=== PATIENT | male | born 1990 | race Two or more races ===

== ENCOUNTER 2017-04-28 21:55 | Emergency (ER) | payer MEDICAID, SELFPAY ==
[~2017-04-28] VITALS: Ht 172.7 cm; Wt 88.9 kg
[~2017-04-28 21:55] MED LIST: CIPROFLOXACIN500 M2 ORAL; NORCO 5-325 TA1 EACH ORAL
[2017-04-28 22:33] VITALS: BP 133/85
[2017-04-28] MEDS ORDERED: POLYTRIM OP SOL10 ML OPHTHALM (23:13)
--- NOTE | 2017-04-28 23:14 | Emergency Room Report ---
History of Present Illness General Chief Complaint: Eye Problems Source: Patient Present Illness HPI Is a 26-year-old male with no past medical history. He presents with red eyes redness and injection discharge. Onset one day. His girlfriend was here couple days ago for the same thing. Patient has a runny nose and congestion. Increased tearing. Increase blurry vision. No nausea no vomiting. No fever or chills . no trauma. Allergies: Coded Allergies: No Known Allergies (Unverified , 02/03/14) Patient History Past Medical History: see triage record, old chart reviewed Past Surgical History: none Pertinent Family History: none Social History: Denies: smoking Immunizations: other Reviewed Nursing Documentation: PMH: Agreed, PSxH: Agreed Nursing Documentation-PMH Hx Neurological Problems: Yes - Migraines, Menegitits as a child Review of Systems Eye: Reports: blurred vision, discharge, Denies: eye pain ENT: Denies: ear pain, nose congestion, throat swelling Respiratory: Denies: cough, shortness of breath Cardiovascular: Denies: chest pain, palpitations Gastrointestinal: Denies: abdominal pain, diarrhea, nausea, vomiting Musculoskeletal: Denies: back pain, joint pain Skin: Denies: rash Neurological: Denies: headache, numbness Endocrine: Denies: increased thirst, increased urine Hematologic/Lymphatic: Denies: easy bruising All Other Systems: negative except mentioned in HPI Physical Exam Vital Signs Date Time Temp Pulse Resp B/P Pulse Ox O2 Delivery O2 Flow Rate FiO2 04/28/17 22:30 98.4 80 16 133/85 98 Room Air vitals normal Sp02 EP Interpretation: reviewed, normal General Appearance: well appearing, no apparent distress, alert Head: normocephalic, atraumatic Eyes: left eye other - left conjunctiva with injection., bilateral eye EOMI, bilateral eye PERRL ENT: hearing grossly normal, normal pharynx Neck: full range of motion, supple, no meningismus Respiratory: chest non-tender, lungs clear, normal breath sounds Cardiovascular #1: regular rate, rhythm, no murmur Gastrointestinal: normal bowel sounds, non tender, no mass, no organomegaly, no bruit, non-distended Musculoskeletal: back normal, gait/station normal, normal range of motion Psychiatric: mood/affect normal Skin: warm/dry Medical Decision Making Diagnostic Impression: Primary Impression: Conjunctivitis Qualified Codes: H10.32 - Unspecified acute conjunctivitis, left eye ER Course Patient presents with a conjunctivitis. Most likely viral. We'll go ahead and treat for possible bacterial infection. No evidence of foreign body. No globe rupture. We'll discharge home. Last Vital Signs Date Time Temp Pulse Resp B/P Pulse Ox O2 Delivery O2 Flow Rate FiO2 04/28/17 22:30 98.4 80 16 133/85 98 Room Air Status: improved Disposition: HOME, SELF-CARE Condition: Stable Scripts Polymyxin/Trimethoprim (Polytrim Eye Drops) 10 Ml Drops 2 DROP OPHTHALM THREE TIMES A DAY, #1 EA Instill in affected eye for 7 days Prov: ATIF FIELD M.D. 04/28/17 Patient Instructions: Bacterial Conjunctivitis, [id number] Additional Instructions: Treat both eyes. Followup with your Dr. in 7 days. Return if worse. ATIF FIELD M.D. Apr 28, 2017 23:14
[2017-04-28 23:20] VITALS: BP 133/85
== END 2017-04-28 23:20 | disposition home or self-care (01) ==
LOC: EMR 22:09
DX: H10.9 Unspecified conjunctivitis (principal)
CPT/HCPCS: 99283

== ENCOUNTER 2018-01-15 15:33 | Emergency (ER) | payer MEDICAID ==
[~2018-01-15] VITALS: Ht 170.2 cm; Wt 86.2 kg
[~2018-01-15 15:33] MED LIST changes: +POLYTRIM OP SOL10 ML OPHTHALM
[2018-01-15] MEDS ORDERED: NKM (15:46)
[2018-01-15] MEDS ORDERED: Morphine Sulfate 2mg/ml Inj IVP ONE (16:00)
[2018-01-15 16:10] VITALS: BP 140/64
[2018-01-15 16:50] LABS: BASOPHILS % (AUTO) 0.9 % (0.0-2.0); EOSINOPHILS % (AUTO) 0.2 % (0.0-3.0); HEMATOCRIT 47.2 % (42.0-52.0); HEMOGLOBIN 16.5 G/DL (14.2-18.0); LYMPHOCYTES % (AUTO) 20.9 % (20.0-45.0); MEAN CORPUSCULAR VOLUME 85 FL (80-99); PLATELET COUNT 142 K/UL (150-450); RED BLOOD COUNT 5.53 M/UL (4.70-6.10); RED CELL DISTRIBUTION WIDTH 11.3 % (11.6-14.8); WHITE BLOOD COUNT 6.7 K/UL (4.8-10.8)
[2018-01-15 16:57] LABS: ANION GAP 11 mmol/L (5-15); BLOOD UREA NITROGEN 12 mg/dL (7-18); CALCIUM 9.2 MG/DL (8.5-10.1); CARBON DIOXIDE 28 MMOL/L (21-32); CHLORIDE 102 MMOL/L (98-107); CREATININE 0.8 MG/DL (0.55-1.30); POTASSIUM 3.4 MMOL/L (3.5-5.1); SODIUM 140 MMOL/L (136-145)
[2018-01-15 17:15] LABS: ALANINE AMINOTRANSFERASE 36 U/L (12-78); ALBUMIN 4.2 G/DL (3.4-5.0); ALKALINE PHOSPHATASE 80 U/L (46-116); ASPARTATE AMINO TRANSFERASE 22 U/L (15-37); BILIRUBIN,TOTAL 1.1 MG/DL (0.2-1.0)
[2018-01-15 17:21] LABS: BILIRUBIN,DIRECT 0.2 MG/DL (0.0-0.3)
[2018-01-15] MEDS ORDERED: Ketorolac 30mg Inj IV ONE (17:30)
[2018-01-15 17:38] VITALS: BP 132/82
--- NOTE | 2018-01-15 17:56 | Emergency Room Report ---
History of Present Illness General Chief Complaint: Nausea, Vomiting, and Diarrhea Source: Patient Present Illness HPI Patient presents with 2 days of vomiting and abdominal pain. The pain is cramping. His son is also ill. They state that his son had constipation. He also is having loose stools. The stools been brown. There are not any fevers or chills. He feels weak when he stands up and feels some dizziness. He denies dysuria. No URI sy. No chest pain. Not depressed. H/O kidney stones in past. This does not feel like that. H/O migraines. Not feel like that, but does have headache. 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 Nursing Documentation: PMH: Agreed; PSxH: Agreed Nursing Documentation-PM Past Medical History: No Stated History Hx Neurological Problems: Yes - Migraines, Menegitits as a child Review of Systems All Other Systems: negative except mentioned in HPI Physical Exam Vital Signs Date Time Temp Pulse Resp B/P (MAP) Pulse Ox O2 Delivery O2 Flow Rate FiO2 01/15/18 15:42 98.3 82 14 140/64 95 Room Air 98.2 Sp02 EP Interpretation: reviewed, normal General Appearance: well appearing, no apparent distress, GCS 15 Head: normocephalic Eyes: bilateral eye normal inspection, bilateral eye PERRL ENT: moist mucus membranes Neck: supple Respiratory: lungs clear, normal breath sounds Cardiovascular #1: regular rate, rhythm Cardiovascular #2: 2+ radial (R) Gastrointestinal: normal inspection, normal bowel sounds, no mass, non- distended, no guarding, no rebound, tenderness - epigastric Genitourinary: no CVA tenderness Musculoskeletal: back normal, gait/station normal, normal range of motion Neurologic: alert, oriented x3, grossly normal Psychiatric: mood/affect normal Skin: normal inspection, warm/dry Medical Decision Making Diagnostic Impression: Primary Impression: Viral gastroenteritis ER Course Patient presents with nausea vomiting abdominal pain and loose stools. He can' t identify any thing he ate however differential includes gastroenteritis, gastritis, pancreatitis, peptic ulcer disease and gallbladder disease. Based on his exam this is more consistent with gastroenteritis. Pain is upper and appendicitis unlikely. He'll be evaluated with labs. He will be treated with IV hydration, Pepcid, Zofran and a small dose of morphine. Labs with normal WBC and minimally low K. After initial treatment the patient still had a headache. Toradol was added. The headache is improved and the patient is able to tolerate regular diet at the moment. (Stomach bubbling after sandwich.) Patient stable for outpatient observation and treatment. Laboratory Tests Test 01/15/18 16:32 White Blood Count 6.7 K/UL (4.8-10.8) Red Blood Count 5.53 M/UL (4.70-6.10) Hemoglobin 16.5 G/DL (14.2-18.0) Hematocrit 47.2 % (42.0-52.0) Mean Corpuscular Volume 85 FL (80-99) Mean Corpuscular Hemoglobin 29.9 PG (27.0-31.0) Mean Corpuscular Hemoglobin Concent 35.1 G/DL (32.0-36.0) Red Cell Distribution Width 11.3 % (11.6-14.8) L Platelet Count 142 K/UL (150-450) L Mean Platelet Volume 13.8 FL (6.5-10.1) H Neutrophils (%) (Auto) 72.0 % (45.0-75.0) Lymphocytes (%) (Auto) 20.9 % (20.0-45.0) Monocytes (%) (Auto) 6.0 % (1.0-10.0) Eosinophils (%) (Auto) 0.2 % (0.0-3.0) Basophils (%) (Auto) 0.9 % (0.0-2.0) Sodium Level 140 MMOL/L (136-145) Potassium Level 3.4 MMOL/L (3.5-5.1) L Chloride Level 102 MMOL/L (98-107) Carbon Dioxide Level 28 MMOL/L (21-32) Anion Gap 11 mmol/L (5-15) Blood Urea Nitrogen 12 mg/dL (7-18) Creatinine 0.8 MG/DL (0.55-1.30) Estimate Glomerular Filtration Rate > 60 mL/min (>60) Glucose Level 92 MG/DL (74-106) Calcium Level 9.2 MG/DL (8.5-10.1) Total Bilirubin 1.1 MG/DL (0.2-1.0) H Direct Bilirubin 0.2 MG/DL (0.0-0.3) Aspartate Amino Transferase (AST) 22 U/L (15-37) Alanine Aminotransferase (ALT) 36 U/L (12-78) Alkaline Phosphatase 80 U/L (46-116) Total Protein 8.5 G/DL (6.4-8.2) H Albumin 4.2 G/DL (3.4-5.0) Globulin 4.3 g/dL Albumin/Globulin Ratio 1.0 (1.0-2.7) Lipase 201 U/L (73-393) Last Vital Signs Date Time Temp Pulse Resp B/P (MAP) Pulse Ox O2 Delivery O2 Flow Rate FiO2 01/15/18 18:08 98.1 16 132/82 96 Room Air 98.1 01/15/18 15:42 82 Status: improved Disposition: HOME, SELF-CARE Condition: Improved Scripts Ondansetron Odt* (ZOFRAN ODT*) 4 Mg Tab.rapdis 4 MG ORAL Q8H PRN for Nausea & Vomiting, #4 TAB 0 Refills Prov: Prince Chaves M.D. 01/15/18 Referrals: VANDANA CAROLINA,REFERRING (PCP) Prince Chaves M.D. Jan 15, 2018 17:56
[2018-01-15] MEDS ORDERED: ZOFRAN ODT4 MG ORAL (17:59)
[2018-01-15 18:08] VITALS: BP 132/82
== END 2018-01-15 18:12 | disposition home or self-care (01) ==
LOC: EMR 15:54
DX: A08.4 Viral intestinal infection, unspecified (principal)
CPT/HCPCS: 36415; 80053; 82248; 83690; 85025; 96374; 96375; 99284; J1885; J2270; J2405; S0028

== ENCOUNTER 2019-09-30 22:26 | Emergency (ER) | payer SELFPAY ==
[~2019-09-30] VITALS: Ht 170.2 cm; Wt 86.2 kg
[~2019-09-30 22:26] MED LIST changes: +NKM; +ZOFRAN ODT4 MG ORAL
[2019-09-30 22:41] VITALS: BP 142/89
--- NOTE | 2019-09-30 22:43 | Emergency Room Report ---
History of Present Illness General Chief Complaint: Chest Pain Source: Patient, Medical Record Present Illness HPI Patient presents with complaints of pain to the right upper chest area Reports that the pain started 3 to 4 days ago It has persisted and he was concerned and came to the ER Patient reports that he thought initially that it was secondary to his workout He is now also having some phlegm production with the cough pain is worse with touch or coughing Denies any shortness of breath denies any vomiting or diarrhea patient does have a history of smoking Pain is a sharp pain that also radiates towards the back towards the right upper scapular area Allergies: Coded Allergies: No Known Allergies (Unverified , 02/03/14) Patient History Past Medical History: see triage record Reviewed Nursing Documentation: PMH: Agreed; PSxH: Agreed Nursing Documentation-PMH Past Medical History: No History, Except For Hx Neurological Problems: Yes - Migraines, Menegitits as a child Review of Systems All Other Systems: negative except mentioned in HPI Physical Exam Vital Signs Date Time Temp Pulse Resp B/P (MAP) Pulse Ox O2 Delivery O2 Flow Rate FiO2 09/30/19 22:29 98.4 75 18 142/89 (106) 96 Room Air Sp02 EP Interpretation: reviewed, normal General Appearance: well appearing, no apparent distress Head: normocephalic, atraumatic Eyes: bilateral eye PERRL, bilateral eye EOMI ENT: hearing grossly normal, normal pharynx, TMs + canals normal, uvula midline Neck: full range of motion, supple, no meningismus, no bony tend Respiratory: lungs clear, normal breath sounds, no rhonchi, no respiratory distress, no retraction, no accessory muscle use Cardiovascular #1: normal peripheral pulses, regular rate, rhythm, no edema, no gallop, no JVD, no murmur Gastrointestinal: normal bowel sounds, non tender, soft, no mass, no organomegaly, non-distended, no guarding, no hernia, no pulsatile mass, no rebound Genitourinary: no CVA tenderness Musculoskeletal: tender - On palpation of the right upper pectoral region midclavicular Neurologic: motor strength/tone normal, oriented x3, sensory intact, responsive Psychiatric: mood/affect normal Skin: no rash Lymphatic: normal inspection, no adenopathy Medical Decision Making Diagnostic Impression: Primary Impression: Chest pain ER Course Patient is a fairly complex patient with multiple differential to consideration including but not limited to cardiac cardiopulmonary and vascular emergencies Patient has significant musculoskeletal component to his complaint EKG was done and was appropriate Chest x-ray does not show any acute process Patient resting comfortably and is stable for close outpatient follow-up EKG Diagnostic Results Rate: normal Rhythm: NSR ST Segments: no acute changes Rhythm Strip Diag. Results EP Interpretation: yes Rate: 60 Rhythm: NSR, no PVC's, no ectopy Chest X-Ray Diagnostic Results Chest X-Ray Diagnostic Results : Chest X-Ray Ordered: Yes # of Views/Limited/Complete: 1 View Indication: Chest Pain EP Interpretation: Yes Interpretation: no consolidation, no effusion, no pneumothorax Impression: No acute disease Electronically Signed by: Eric Arambula DO Last Vital Signs Date Time Temp Pulse Resp B/P (MAP) Pulse Ox O2 Delivery O2 Flow Rate FiO2 09/30/19 22:29 98.4 75 18 142/89 (106) 96 Room Air Status: improved Disposition: HOME, SELF-CARE Condition: Improved Additional Instructions: Patient is provided with the discharge instructions notified to follow up with primary doctor in the next 2-3 days otherwise return to the er with any worsening symptoms. Please note that this report is being documented using [employer] technology. This can lead to erroneous entry secondary to incorrect interpretation by the dictating instrument. Eric Arambula DO Sep 30, 2019 22:43
[2019-09-30 23:45] VITALS: BP 142/89
--- NOTE | 2019-10-01 11:41 | Diagnostic Imaging Report ---
Indication: Chest pain Technique: One view of the chest Comparison: none Findings: Lungs and pleural spaces are clear. Heart size is normal. Impression: No acute process
== END 2019-09-30 23:45 | disposition home or self-care (01) ==
LOC: EMR 22:55
DX: R07.9 Chest pain, unspecified (principal); Z86.61 Personal history of infections of the central nervous system
CPT/HCPCS: 71045; 93005; 99283

== ENCOUNTER 2020-05-25 17:33 | Emergency (ER) | payer OTHER ==
[~2020-05-25] VITALS: Ht 170.2 cm; Wt 86.2 kg
[2020-05-25 17:39] VITALS: BP 166/107
--- NOTE | 2020-05-25 17:39 | NUR ---
ED Nurse Note: Patient walked in to ED from home c/o left flank pain x2 hrs ago. Deneis nausea, vomiting, diarrhea. Pt has hx of history of kidney stones and reports hematuria x couple days ago. Pt AAOx4, verbally responsive. No SOB, on room air. Afebrile. Pt placed on monitoring tech. ERPA at bedside.
[2020-05-25] MEDS ORDERED: Ketorolac 30mg Inj IV ONE (17:45)
--- NOTE | 2020-05-25 17:51 | NUR ---
ED Nurse Note: IV line established. Blood specimen collected and sent to lab.
[2020-05-25] MEDS ORDERED: Morphine Sulfate 4mg/ml Inj (IV USE ONLY) IVP ONE (18:00)
--- NOTE | 2020-05-25 18:01 | Emergency Room Report ---
History of Present Illness General Chief Complaint: Abdominal Pain Source: Patient Present Illness HPI 30-year-old male presents to the emergency department complaining of 10 out of 10 severity left flank pain x1 day. Patient reports acute onset. He does report he has been having some hematuria for 2 to 3 days. He denies fevers or chills. Patient reports history of renal calculi in the past and states that today's presentation is very similar to what he experienced in the past. He denies nausea or vomiting. He denies constipation or diarrhea. He denies abdominal tenderness or back pain. He denies penile DC. He denies urinary frequency or urgency. Allergies: Coded Allergies: No Known Allergies (Unverified , 02/03/14) COVID-19 Screening Contact w/high risk pt: No Experienced COVID-19 symptoms?: No COVID-19 Testing performed CHORE TENDER: No Patient History Past Medical History: see triage record Past Surgical History: none Pertinent Family History: none Reviewed Nursing Documentation: PMH: Agreed; PSxH: Agreed Nursing Documentation-PMH Past Medical History: No History, Except For Hx Neurological Problems: Yes - Migraines, Menegitits as a child Review of Systems All Other Systems: negative except mentioned in HPI Physical Exam Vital Signs Date Time Temp Pulse Resp B/P (MAP) Pulse Ox O2 Delivery O2 Flow Rate FiO2 05/25/20 17:38 97.3 55 20 166/107 (126) 99 Room Air Sp02 EP Interpretation: reviewed, normal General Appearance: no apparent distress, alert, GCS 15, non-toxic Head: normocephalic, atraumatic Eyes: bilateral eye normal inspection, bilateral eye PERRL ENT: hearing grossly normal, normal voice Neck: full range of motion Respiratory: lungs clear, normal breath sounds, speaking full sentences Cardiovascular #1: regular rate, rhythm Gastrointestinal: normal bowel sounds, non tender, soft, non-distended, no guarding Rectal: deferred Genitourinary: normal inspection, CVA tenderness (L) Musculoskeletal: back normal, normal range of motion, gait/station normal, non- tender Neurologic: alert, motor strength/tone normal, oriented x3, sensory intact, responsive, speech normal Psychiatric: judgement/insight normal Lymphatic: no adenopathy Medical Decision Making PA Attestation Dr. Lebron is my supervising Physician whom patient management has been discussed with. Diagnostic Impression: Primary Impression: Kidney calculi Additional Impression: UTI (urinary tract infection) Qualified Codes: N30.01 - Acute cystitis with hematuria ER Course 30-year-old male presents to the emergency department complaining of 10 out of 10 severity left flank pain x1 day. Patient reports acute onset. He does report he has been having some hematuria for 2 to 3 days. He denies fevers or chills. Patient reports history of renal calculi in the past and states that today's presentation is very similar to what he experienced in the past. He denies nausea or vomiting. He denies constipation or diarrhea. He denies abdominal tenderness or back pain. He denies penile DC. He denies urinary frequency or urgency. Ddx considered but are not limited to Diverticulitis, acute appendicitis, diarrhea,UC, PUD, GE, pancreatitis, gallstone, kidney stone, pyelonephritis, UTI , obstruction. Vital signs: are WNL, pt. is afebrile. H&PE are most consistent with possible Left sided renal calculi. Patient does not have an acute abdomen on exam. ORDERS: -CBC: * elevated WBC's of 19.4 - CMP: normal cr and BUN - lipase: 421 - UA: --- Bacteria and inflammatory marker increase = UTI - CT abdomen and pelvis no contrast: Stone in the left ureter 6mm ED INTERVENTIONS: -- 1000NS IV bolus x 2 --6mg Morphine for pain -Toradol 30mg IV -1 Gm. Rocephin IV DISPOSITION: pt. signed out to attending physician Dr. Lebron. Labs Test 05/25/20 17:51 05/25/20 19:45 White Blood Count 19.4 K/UL (4.8-10.8) Red Blood Count 5.72 M/UL (4.70-6.10) Hemoglobin 16.7 G/DL (14.2-18.0) Hematocrit 49.7 % (42.0-52.0) Mean Corpuscular Volume 87 FL (80-99) Mean Corpuscular Hemoglobin 29.2 PG (27.0-31.0) Mean Corpuscular Hemoglobin Concent 33.6 G/DL (32.0-36.0) Red Cell Distribution Width 11.8 % (11.6-14.8) Platelet Count 162 K/UL (150-450) Mean Platelet Volume 14.5 FL (6.5-10.1) Neutrophils (%) (Auto) % (45.0-75.0) Lymphocytes (%) (Auto) % (20.0-45.0) Monocytes (%) (Auto) % (1.0-10.0) Eosinophils (%) (Auto) % (0.0-3.0) Basophils (%) (Auto) % (0.0-2.0) Differential Total Cells Counted 100 Neutrophils % (Manual) 79 % (45-75) Lymphocytes % (Manual) 15 % (20-45) Monocytes % (Manual) 2 % (1-10) Eosinophils % (Manual) 0 % (0-3) Basophils % (Manual) 0 % (0-2) Band Neutrophils 4 % (0-8) Platelet Estimate Adequate Platelet Morphology Normal Red Blood Cell Morphology Normal Sodium Level 139 MMOL/L (136-145) Potassium Level 3.8 MMOL/L (3.5-5.1) Chloride Level 102 MMOL/L (98-107) Carbon Dioxide Level 25 MMOL/L (21-32) Anion Gap 12 mmol/L (5-15) Blood Urea Nitrogen 12 mg/dL (7-18) Creatinine 1.1 MG/DL (0.55-1.30) Estimat Glomerular Filtration Rate > 60 mL/min (>60) Glucose Level 124 MG/DL (74-106) Calcium Level 9.3 MG/DL (8.5-10.1) Total Bilirubin 0.5 MG/DL (0.2-1.0) Aspartate Amino Transf (AST/SGOT) 19 U/L (15-37) Alanine Aminotransferase (ALT/SGPT) 35 U/L (12-78) Alkaline Phosphatase 78 U/L (46-116) Total Protein 8.0 G/DL (6.4-8.2) Albumin 4.3 G/DL (3.4-5.0) Globulin 3.7 g/dL Albumin/Globulin Ratio 1.2 (1.0-2.7) Lipase 421 U/L (73-393) Urine Color Pale yellow Urine Appearance Cloudy Urine pH 7 (4.5-8.0) Urine Specific [place] 1.010 (1.005-1.035) Urine Protein 2+ (NEGATIVE) Urine Glucose (UA) Negative (NEGATIVE) Urine Ketones Negative (NEGATIVE) Urine Blood 5+ (NEGATIVE) Urine Nitrite Negative (NEGATIVE) Urine Bilirubin Negative (NEGATIVE) Urine Urobilinogen Normal MG/DL (0.0-1.0) Urine Leukocyte Esterase 1+ (NEGATIVE) Urine RBC Tntc /HPF (0 - 0) Urine WBC 10-15 /HPF (0 - 0) Urine Squamous Epithelial Cells Occasional /LPF Urine Bacteria Moderate /HPF (NONE) CT/MRI/US Diagnostic Results CT/MRI/US Diagnostic Results : Imaging Test Ordered: Ct Abdomen and PElvis without Contrast Impression " IMPRESSION: 1. 6 mm proximal left ureterolith. No significant hydronephrosis. 2. Peripherally calcified right renal cyst. Internal density is not entirely cystic. Recommend outpatient renal ultrasound for further evaluation. 3. Bilateral nephrolithiasis. " --Per official radiology report- Please see report for specific details. Last Vital Signs Date Time Temp Pulse Resp B/P (MAP) Pulse Ox O2 Delivery O2 Flow Rate FiO2 05/25/20 17:38 97.3 55 20 166/107 (126) 99 Room Air Disposition: HOME, SELF-CARE Condition: Stable Physician Consult: Dr. Blackburn ( urology) Scripts Hydrocodone Bit/Acetaminophen 5-325* (NORCO 5-325 TABLET*) 1 Each Tablet 1 TAB ORAL Q6H PRN for FOR PAIN, #12 TAB 0 Refills Prov: Bakari Lebron MD 05/25/20 Ibuprofen* (MOTRIN*) 600 Mg Tablet 600 MG ORAL Q6H PRN for For Pain, #30 TAB 0 Refills Prov: Bakari Lebron MD 05/25/20 Tamsulosin HCl (Flomax) 0.4 Mg Cap.er.24h 0.4 MG ORAL DAILY for 5 Days, #5 CAP Prov: Bakari Lebron MD 05/25/20 Ciprofloxacin Hcl* (CIPROFLOXACIN HCL*) 500 Mg Tablet 500 MG ORAL Q12H, #14 TAB 0 Refills Prov: Bakari Lebron MD 05/25/20 Gayle Resendiz May 25, 2020 18:01
[2020-05-25 18:04] LABS: HEMATOCRIT 49.7 % (42.0-52.0); HEMOGLOBIN 16.7 G/DL (14.2-18.0); MEAN CORPUSCULAR VOLUME 87 FL (80-99); PLATELET COUNT 162 K/UL (150-450); RED BLOOD COUNT 5.72 M/UL (4.70-6.10); RED CELL DISTRIBUTION WIDTH 11.8 % (11.6-14.8); WHITE BLOOD COUNT 19.4 K/UL (4.8-10.8)
--- NOTE | 2020-05-25 18:05 | NUR ---
ED Nurse Note: Pt was taken to CT via nadja accompanied by a tech.
[2020-05-25 18:14] LABS: ANION GAP 12 mmol/L (5-15); BLOOD UREA NITROGEN 12 mg/dL (7-18); CALCIUM 9.3 MG/DL (8.5-10.1); CARBON DIOXIDE 25 MMOL/L (21-32); CHLORIDE 102 MMOL/L (98-107); CREATININE 1.1 MG/DL (0.55-1.30); POTASSIUM 3.8 MMOL/L (3.5-5.1); SODIUM 139 MMOL/L (136-145)
--- NOTE | 2020-05-25 18:16 | NUR ---
ED Nurse Note: Pt returned from CT, not in any distress.
[2020-05-25 18:18] LABS: ALANINE AMINOTRANSFERASE 35 U/L (12-78); ALBUMIN 4.3 G/DL (3.4-5.0); ALBUMIN/GLOBULIN RATIO 1.2 (1.0-2.7); ALKALINE PHOSPHATASE 78 U/L (46-116); ASPARTATE AMINO TRANSFERASE 19 U/L (15-37); BILIRUBIN,TOTAL 0.5 MG/DL (0.2-1.0)
--- NOTE | 2020-05-25 18:38 | Diagnostic Imaging Report ---
EXAM: CT Abdomen and Pelvis Without Intravenous Contrast CLINICAL HISTORY: PAIN TECHNIQUE: Axial computed tomography images of the abdomen and pelvis without intravenous contrast. CTDI is 6.8 mGy and DLP is 388.1 mGy-cm. One or more of the following dose reduction techniques were used: automated exposure control, adjustment of the mA and/or kV according to patient size, use of iterative reconstruction technique. COMPARISON: CT abdomen and pelvis dated 02/03/2014 FINDINGS: Lung bases: Unremarkable. No mass. No consolidation. ABDOMEN: Liver: Unremarkable. Gallbladder and bile ducts: Unremarkable. No calcified stones. No ductal dilation. Pancreas: Unremarkable. No ductal dilation. Spleen: Unremarkable. No splenomegaly. Adrenals: Unremarkable. No mass. Kidneys and ureters: 6 mm proximal left ureterolith. No significant hydronephrosis. Bilateral renal calculi, the largest measuring 6 mm on the left. Punctate density within the right upper pole. Right lower pole calcifications which likely are peripheral calcifications of a underlying cyst. Bilateral renal cysts are demonstrated in partially visualized. Stomach and bowel: Unremarkable. No obstruction. No mucosal thickening. PELVIS: Appendix: No findings to suggest acute appendicitis. Bladder: Unremarkable. No stones. Reproductive: Unremarkable as visualized. ABDOMEN and PELVIS: Intraperitoneal space: Unremarkable. No free air. No significant fluid collection. Bones/joints: No acute fracture. No dislocation. Soft tissues: Unremarkable. Vasculature: Unremarkable. No abdominal aortic aneurysm. Lymph nodes: Unremarkable. No enlarged lymph nodes. IMPRESSION: 1. 6 mm proximal left ureterolith. No significant hydronephrosis. 2. Peripherally calcified right renal cyst. Internal density is not entirely cystic. Recommend outpatient renal ultrasound for further evaluation. 3. Bilateral nephrolithiasis.
--- NOTE | 2020-05-25 19:02 | NUR ---
HAND-OFF: Report given to [place] RN.
--- NOTE | 2020-05-25 19:02 | NUR ---
ED Nurse Note: Report received from TARAS JIMENEZ. Patient awake on bed. No c/o pain as of the moment. Antibiotics started. Awaiting for urine specimen from the patient
[2020-05-25] MEDS ORDERED: cefTRIAXone 1 GM in NS 55 ML IVPB ONE (19:15)
--- NOTE | 2020-05-25 19:45 | NUR ---
ED Nurse Note: Straight cath done. Urine specimen sent to lab
[2020-05-25 19:50] LABS: APPEARANCE,URINE CLOUDY; BILIRUBIN, URINE NEGATIVE (NEGATIVE); COLOR,URINE PALE YELLOW; GLUCOSE, URINE (UA) NEGATIVE (NEGATIVE); KETONES,URINE NEGATIVE (NEGATIVE); LEUKOCYTE ESTERASE ,URINE 1+ (NEGATIVE); NITRITE,URINE NEGATIVE (NEGATIVE); PH,URINE 7 (4.5-8.0); PROTEIN,URINE 2+ (NEGATIVE); UROBILINOGEN,URINE NORMAL MG/DL (0.0-1.0)
[2020-05-25] MEDS ORDERED: CIPROFLOXACIN500 M2 ORAL (20:38)
[2020-05-25] MEDS ORDERED: FLOMAX0.4 MG ORAL (20:38)
[2020-05-25] MEDS ORDERED: IBUPROFEN600 M1 ORAL (20:38)
[2020-05-25] MEDS ORDERED: NORCO 5-325 TA1 EAC1 ORAL (20:38)
[2020-05-25 20:46] VITALS: BP 117/75
--- NOTE | 2020-05-25 20:46 | NUR ---
ER DISCHARGE NOTE: Patient is cleared to be discharged per ERMD, pt is aox4, on room air, with stable vital signs. pt was given dc and prescription instructions, pt was able to verbalize understanding, pt id band and iv site removed without complications. pt is able to ambulate with steady gait. pt took all belongings.
== END 2020-05-25 20:47 | disposition home or self-care (01) ==
LOC: EMR 18:47
DX: N20.0 Calculus of kidney (principal); N30.01 Acute cystitis with hematuria; Z86.61 Personal history of infections of the central nervous system; N28.1 Cyst of kidney, acquired
CPT/HCPCS: 36415; 74176; 80053; 81003; 83690; 85007; 85025; 87086; 96361; 96365; 96375; J0696; J1885; J2270; J7030; Z7502; 99284